=== PATIENT | female | born 1970 | race Caucasian/White ===

== ENCOUNTER 2016-11-23 14:12 | Emergency (ER) | payer BC, OTHER ==
[~2016-11-23] VITALS: Ht 167.6 cm; Wt 149.8 kg
[~2016-11-23 14:12] MED LIST: BUPR150T6 PO; BUPR300T4 PO; DEXA10VI7 EACHEYE; LOSA50TA6 PO; NORG1TAB10 PO; NORT50CA PO; OXYC1TAB7 PO; [UNRECOGNIZED DRUG - CODE] PO
[2016-11-23 14:14] VITALS: BP 163/97
[2016-11-23] MEDS ORDERED: FLUORESCEIN OPHTHALMIC 1 MG STRIP ONE (14:47)
[2016-11-23] MEDS ORDERED: FLUORESCEIN OPHTHALMIC 1 MG STRIP EACHEYE ONE (15:00)
[2016-11-23] MEDS ORDERED: PROPARACAINE OPHTH 0.5%, 15ML EACHEYE ONE (15:00)
== END 2016-11-23 15:39 | disposition home or self-care (01) ==
LOC: ED 15:32
DX: H10.021 Other mucopurulent conjunctivitis, right eye (principal); I10 Essential (primary) hypertension
CPT/HCPCS: 99283